=== PATIENT | female | born 1950 | race Caucasian/White ===

== ENCOUNTER 2022-11-17 07:42 | Day surgery (SDC) | payer MEDICARE, OTHER ==
[~2022-11-17 07:42] MED LIST: UNK BP MED
[2022-11-17] MEDS ORDERED: GLYCOPYRROLATE 0.2 MG/ML VIAL ONE (10:00)
[2022-11-17] MEDS ORDERED: LIDOCAINE-MPF 2% 5 ML VIAL ONE (10:00)
[2022-11-17] MEDS ORDERED: SIMETHICONE 40 MG/0.6 ML, 30ML BOTTLE ONE (10:05)
[2022-11-17] MEDS ORDERED: PROPOFOL 200 MG/20 ML BOTTLE ONE ×2 (10:05)
[2022-11-17 11:55] VITALS: TEMP 98
== END 2022-11-17 12:00 | disposition home or self-care (01) ==
LOC: DS 07:42
PROVIDERS: ATTEND Surgery
DX: D64.9 Anemia, unspecified (principal); R63.4 Abnormal weight loss; R19.4 Change in bowel habit; R10.13 Epigastric pain; K29.50 Unspecified chronic gastritis without bleeding; K44.9 Diaphragmatic hernia without obstruction or gangrene; K29.80 Duodenitis without bleeding; K31.7 Polyp of stomach and duodenum; K20.80 Other esophagitis without bleeding; Z86.010 Personal history of colon polyps; K64.8 Other hemorrhoids; I10 Essential (primary) hypertension; J98.11 Atelectasis; E11.9 Type 2 diabetes mellitus without complications; Z79.84 Long term (current) use of oral hypoglycemic drugs; Z79.899 Other long term (current) drug therapy; Z98.890 Other specified postprocedural states
CPT/HCPCS: 36415; 71045; 85730; 88313-TC; 88342; A4663; J3490; J7040